=== PATIENT | female | born 1945 | race Hispanic/Latino ===

== ENCOUNTER 2021-05-09 11:54 | Emergency (ER) | payer OTHER, BC ==
--- NOTE | 2021-05-09 14:27 | RAD REPORT ---
EXAM DESCRIPTION: RAD - Knee Right 3 View - 05/09/2021 2:17 pm CLINICAL HISTORY: PAIN, multiple falls COMPARISON: No comparisons FINDINGS: No fracture, dislocation or periosteal reaction.No significant joint effusion is seen. Med ial and lateral compartment mild narrowing seen. Patient has very dense degenerative calcifications i n the meniscal tissue. Tri compartment mild marginal spurring changes are present. No foreign body or other soft tissue abnormality. 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 Clinical concerns for internal derangement or occult bony injury could be further assessed with MR im aging.
--- NOTE | 2021-05-09 22:38 | ER ---
Nurse's Notes [facility] Name: Kelsey Aceves Age: 75 yrs Sex: Female : 1945 Arrival Date: 05/09/2021 Time: 11:58 Bed 11 Private MD: Diagnosis: Sciatica, right side;Pain in right leg Presentation: 05/09 13:09 Chief complaint: Patient states: 7 months ago hurt right leg on bed frame; but now last jh5 two weeks right knee hurts worse and is swollen. Pt has pain down her leg and is scared she has blood clots behind the knee cap. Pt states she takes NORCO 10/325 at home and it doesn't touch her pain. Coronavirus screen: Vaccine status: Patient reports receiving the 2nd dose of the covid vaccine. Ebola Screen: Patient negative for fever greater than or equal to 101.5 degrees Fahrenheit, and additional compatible Ebola Virus Disease symptoms Patient denies exposure to infectious person. Patient denies travel to an Ebola-affected area in the 21 days before illness onset. Initial Sepsis Screen: Does the patient meet any 2 criteria? No. Patient's initial sepsis screen is negative. Does the patient have a suspected source of infection? No. Patient's initial sepsis screen is negative. Risk Assessment: Do you want to hurt yourself or someone else? Patient reports no desire to harm self or others. Onset of symptoms was August 2020. 13:09 Method Of Arrival: Ambulatory [facility] 13:09 Acuity: MONTRELL 4 5 Triage Assessment: 13:16 General: Appears uncomfortable, well groomed, well developed, well nourished, Behavior [facility] is calm, cooperative, appropriate for age. Pain: Complains of pain in right leg. Historical: - Allergies: 13:13 No Known Allergies; [facility] - Home Meds: 13:13 meloxicam 7.5 mg/5 mL oral susp [Active]; oxybutynin chloride 15 mg Oral tr24 1 tab jh5 once daily [Active]; Lipitor 10 mg Oral tab 1 tab once daily [Active]; - PMHx: 13:15 Migraine; [facility] - Immunization history:: Adult Immunizations up to date. - Social history:: Smoking status: Patient reports the use of cigarette tobacco products, smokes one pack cigarettes per day. Screenin:16 Abuse screen: Denies threats or abuse. Denies injuries from another. Nutritional jh5 screening: No deficits noted. Tuberculosis screening: No symptoms or risk factors identified. Fall Risk Fall in past 12 months (25 points). Assessment: 23:00 General: Appears in no apparent distress. uncomfortable, Behavior is calm, cooperative. bb Pain: Complains of pain in right leg. Neuro: Level of Consciousness is awake, alert, obeys commands, Oriented to person, place, time, situation. Cardiovascular: Capillary refill < 3 seconds. Respiratory: Airway is patent Respiratory effort is even, unlabored. GI: No signs and/or symptoms were reported involving the gastrointestinal system. Derm: Skin is pink, warm \T\ dry. Musculoskeletal: Reports pain in right leg. 23:20 Reassessment: Patient is alert, oriented x 3, equal unlabored respirations, skin bb warm/dry/pink. pt verbalized understanding of and agrees to plan of care discharge instructions given pt ambulated with walker to exit. Vital Signs: 13:09 BP 124 / 83; Pulse 68; Resp 16; Temp 98.6; Pulse Ox 99% ; Weight 88 kg; Height 5 ft. 4 jh5 in. (162.56 cm); Pain 10/10; 13:09 Body Mass Index 33.30 (88.00 kg, 162.56 cm) 5 ED Course: 11:58 Patient arrived in ED. mr 13:13 Triage completed. 5 13:16 Arm band placed on left wrist. jh5 14:17 Knee Right 3 View In Process Unspecified. EDMS 21:33 US Extremity Venous Unilateral Ltd In Process Unspecified. EDMS 22:03 Shanelle Rodriguez FNP-C is PHCP. kb 22:03 Ranjeet See MD is Attending Physician. kb 23:00 Patient has correct armband on for positive identification. bb 23:00 No provider procedures requiring assistance completed. Patient did not have IV access bb during this emergency room visit. Administered Medications: 23:05 CANCELLED (Patient Refused): morphine 4 mg IM once; RASS on ADMIN: Combtv4, Very bb Agttd3, Agttd2, Rstlss1, AlertClm0, Drwsy-1, Lt Sdtn-2, Mod Sdtn-3, Dp Sdtn-4, UnArsble-5 23:05 Drug: Zofran (Ondansetron) 4 mg Route: PO; bb 23:18 Follow up: Response: No adverse reaction bb 23:05 Drug: Ketorolac 30 mg Route: IM; Site: right gluteus; bb 23:18 Follow up: Response: No adverse reaction bb Outcome: 22:37 Discharge ordered by . elliot 23:21 Discharged to home ambulatory. bb 23:21 Condition: stable 23:21 Discharge instructions given to patient, Instructed on discharge instructions, follow up and referral plans. Demonstrated understanding of instructions, follow-up care. 23:21 Patient left the ED. bb Signatures: Dispatcher [employer] EDMS Shanelle Rodriguez, PER SELLERS-Nathalie Ford Brenda, RN RN Malka Linares RN RN jh5
--- NOTE | 2021-05-09 22:38 | EDPHYS ---
Physician Documentation [facility] Name: Kelsey Aceves Age: 75 yrs Sex: Female : 1945 Arrival Date: 05/09/2021 Time: 11:58 Bed 11 Private MD: ED Physician Ranjeet See HPI: 05/09 22:33 This 75 yrs old Female presents to ER via Ambulatory with complaints of Leg kb Pain. 22:33 The patient presents with pain, that is acute, tenderness. The complaints affect the kb right leg. Context: The problem was sustained at home, resulted from an unknown cause, the patient can partially bear weight, uses a walker. Onset: The symptoms/episode began/occurred 7 month(s) ago, and became persistent 2 weeks ago. Modifying factors: The symptoms are alleviated by nothing. the symptoms are aggravated by nothing. Associated signs and symptoms: The patient has no apparent associated signs or symptoms. Treatment prior to arrival includes: no previous treatment. Severity of symptoms: At their worst the symptoms were moderate, in the emergency department the symptoms are unchanged. The patient has not experienced similar symptoms in the past. The patient has not recently seen a physician. Pt states she has had pain to right leg for 7 months, worse over the last 2 weeks. States the pain starts at buttock and radiates down leg. States she has a lot of pain behind knee and is concerned about a blood clot because she had one behind the other knee. Reports a burning sensation as well. Denies injury. States she has tried everything she has at home including muscle relaxers and vicodin without relief.. Historical: - Allergies: 13:13 No Known Allergies; jh5 - Home Meds: 13:13 meloxicam 7.5 mg/5 mL oral susp [Active]; oxybutynin chloride 15 mg Oral tr24 1 tab jh5 once daily [Active]; Lipitor 10 mg Oral tab 1 tab once daily [Active]; - PMHx: 13:15 Migraine; jh5 - Immunization history:: Adult Immunizations up to date. - Social history:: Smoking status: Patient reports the use of cigarette tobacco products, smokes one pack cigarettes per day. ROS: 22:33 Constitutional: Negative for fever, chills, and weight loss. kb 22:33 MS/extremity: Positive for pain, of the right leg. 22:33 All other systems are negative. Exam: 22:33 Constitutional: This is a well developed, well nourished patient who is awake, alert, kb and in no acute distress. Head/Face: Normocephalic, atraumatic. ENT: Moist Mucous membranes Respiratory: Respirations even and unlabored. No increased work of breathing. Talking in full sentences Skin: Warm, dry with normal turgor. Normal color. Neuro: Awake and alert, GCS 15, oriented to person, place, time, and situation. Moves all extremities. Normal gait. Psych: Awake, alert, with orientation to person, place and time. Behavior, mood, and affect are within normal limits. 22:33 Musculoskeletal/extremity: Extremities: grossly normal except: noted in the right leg: pain, ROM: intact in all extremities, Circulation is intact in all extremities. Sensation intact. Weight bearing: can bear weight with assistance only, uses walker. Vital Signs: 13:09 BP 124 / 83; Pulse 68; Resp 16; Temp 98.6; Pulse Ox 99% ; Weight 88 kg; Height 5 ft. 4 jh5 in. (162.56 cm); Pain 10; 13:09 Body Mass Index 33.30 (88.00 kg, 162.56 cm) jh5 MDM: 22:10 Patient medically screened. kb 22:32 Data reviewed: vital signs, nurses notes. Data interpreted: Pulse oximetry: on room air kb is 99 %. Interpretation: normal. Counseling: I had a detailed discussion with the patient and/or guardian regarding: the historical points, exam findings, and any diagnostic results supporting the discharge/admit diagnosis, radiology results, the need for outpatient follow up, a family practitioner, to return to the emergency department if symptoms worsen or persist or if there are any questions or concerns that arise at home. 05/09 14:16 Order name: Knee Right 3 View; Complete Time: 15:59 EDMS 05/09 20:57 Order name: US Extremity Venous Unilateral Ltd bb Administered Medications: 23:05 CANCELLED (Patient Refused): morphine 4 mg IM once; RASS on ADMIN: Combtv4, Very bb Agttd3, Agttd2, Rstlss1, AlertClm0, Drwsy-1, Lt Sdtn-2, Mod Sdtn-3, Dp Sdtn-4, UnArsble-5 23:05 Drug: Zofran (Ondansetron) 4 mg Route: PO; bb 23:18 Follow up: Response: No adverse reaction bb 23:05 Drug: Ketorolac 30 mg Route: IM; Site: right gluteus; bb 23:18 Follow up: Response: No adverse reaction bb Disposition: 05/10 04:06 Co-signature as Attending Physician, Ranjeet See MD. [email or web address] Disposition Summary: 05/09/21 22:37 Discharge Ordered Location: Home kb Condition: Stable kb Diagnosis - Sciatica, right side kb - Pain in right leg kb Followup: kb - With: Emergency Department - When: As needed - Reason: Worsening of condition Followup: kb - With: Private Physician - When: 2 - 3 days - Reason: Recheck today's complaints, Continuance of care, Re-evaluation by your physician Discharge Instructions: - Discharge Summary Sheet kb - Musculoskeletal Pain kb - Peripheral Neuropathy kb - Sciatica, [id number] kb Forms: - Medication Reconciliation Form kb - Thank You Letter kb - Antibiotic Education kb - Prescription Opioid Use kb Signatures: Dispatcher [employer] EDMS Shanelle Rodriguez, STRUCTURAL IRONWORKER-C STRUCTURAL IRONWORKER-Dee Castro RN RN Ranjeet Hill MD MD mh7 Malka Dover RN RN jh5 Corrections: (The following items were deleted from the chart) 05/09 14:16 13:18 Knee Left 3 View+RAD.RAD.BRZ ordered. EDMS EDMS 23:05 22:32 morphine 4 mg IM once; RASS on ADMIN: Combtv4, Very Agttd3, Agttd2, Rstlss1, bb AlertClm0, Drwsy-1, Lt Sdtn-2, Mod Sdtn-3, Dp Sdtn-4, UnArsble-5 ordered. kb
[2021-05-09] MEDS ORDERED: ONDANSETRON 4 MG (ODT) TAB ONE (22:45)
[2021-05-09] MEDS ORDERED: MORPHINE 4 MG/ML SYR ONE (22:45)
[2021-05-09] MEDS ORDERED: KETOROLAC 30 MG/ML INJ ONE (22:54)
[2021-05-09 23:29] VITALS: BP 124/83; TEMP 98.6; O2SAT 99
--- NOTE | 2021-05-10 07:15 | RAD REPORT ---
EXAM DESCRIPTION: US - Extremity Venous Uni Ltd - 05/09/2021 9:33 pm CLINICAL HISTORY: PAIN Preliminary findings provided at the time of the study. COMPARISON: None. TECHNIQUE: Real-time sonographic evaluation of the right lower extremity deep venous systems was per formed. FINDINGS: Normal compressibility, flow augmentation, phasic flow and spontaneous flow are identified in the right lower extremity common femoral, superficial femoral, popliteal and posterior tibial vei ns. No intraluminal filling defects seen. A 4 x 1 x 1 cm popliteal fossa cyst is present. Debris is present within the lumen. No cyst rupture f indings. IMPRESSION: No DVT in the right lower extremity. Right popliteal fossa cyst.
== END 2021-05-09 23:21 | disposition home or self-care (01) ==
LOC: ER 11:54
DX: M54.31 Sciatica, right side (principal); F17.210 Nicotine dependence, cigarettes, uncomplicated
CPT/HCPCS: 93971; 96372; 99283